=== PATIENT | male | born 1950 | race Caucasian/White ===

== ENCOUNTER 2016-05-26 10:40 | Inpatient (IN) | payer MEDICARE, MEDICAID ==
[~2016-05-26] VITALS: Ht 172.7 cm; Wt 84.4 kg
[2016-05-26 11:03] LABS: BASOPHILS % (AUTO) 0.5 % (0.0-2.0); DIFF TOTAL % 100 %; EOSINOPHILS # (AUTO) 0.2 /CMM (0.0-0.7); EOSINOPHILS % (AUTO) 1.9 % (0.0-6.0); HEMATOCRIT 45 % (39-51); HEMOGLOBIN 14.8 g/dL (13.5-17.5); LYMPHOCYTES # (AUTO) 2.6 /CMM (0.8-4.8); LYMPHOCYTES % (AUTO) 27.9 % (20.0-44.0); MEAN CORPUSCULAR HEMOGLOBIN 30 PG (26.0-33.0); MEAN CORPUSCULAR HGB CONC 33 g/dl (31.0-36.0); MEAN CORPUSCULAR VOLUME 90 fL (80-96); MONOCYTES # (AUTO) 1.3 /CMM (0.1-1.30); MONOCYTES % (AUTO) 14.4 % (2.0-12.0); NEUTROPHILS # (AUTO) 5.2 /CMM (1.8-8.9); NEUTROPHILS % (AUTO) 55.3 % (43.0-81.0); PLATELET COUNT (AUTO) 120 /CMM (150-450); WHITE BLOOD COUNT (AUTO) 9.3 K/uL (4.3-11.0)
[2016-05-26 11:29] LABS: ANION GAP 13 (5-14); CALCIUM, SERUM 8.7 mg/dL (8.5-10.1); CARBON DIOXIDE 28 mmol/L (21-32); CHLORIDE 108 mmol/L (98-107); CREATININE 1.1 mg/dL (0.6-1.3); GFR 67 mL/min (>60); GLUCOSE 87 mg/dL (74-106); POTASSIUM 3.8 mmol/L (3.5-5.1); SODIUM SERUM 145 mmol/L (136-145); UREA NITROGEN, BLOOD 20 mg/dL (7-18)
[2016-05-26 11:35] LABS: ALANINE AMINOTRANSFERASE 47 U/L (12-78); ALBUMIN 3.3 g/dL (3.4-5.0); ASPARTATE AMINOTRANSFERASE 29 U/L (15-37); BILIRUBIN,DIRECT 0.1 mg/dL (0.0-0.2); BILIRUBIN,TOTAL 0.3 mg/dL (0.2-1.0); INDIRECT BILIRUBIN 0.2 mg/dL (0.0-1.1); TOTAL PROTEIN, SERUM 7.2 g/dL (6.4-8.2)
[2016-05-26 11:36] LABS: ACETAMINOPHEN 0 ug/ml (10-30)
[2016-05-26] MEDS ORDERED: ESCI5TAB PO (12:25)
[2016-05-26] MEDS ORDERED: MULT-213 PO (12:25)
[2016-05-26] MEDS ORDERED: NA P133E RC (12:25)
[2016-05-26] MEDS ORDERED: CRAN3875 PO (12:25)
[2016-05-26] MEDS ORDERED: ACET-868 PO (12:25)
[2016-05-26] MEDS ORDERED: CLON0.5T PO (12:25)
[2016-05-26] MEDS ORDERED: BISA10SU8 RC (12:25)
[2016-05-26] MEDS ORDERED: ONDA4TAB5 PO (12:25)
[2016-05-26] MEDS ORDERED: LEVE100S PO (12:25)
[2016-05-26] MEDS ORDERED: MAGN400O6 PO (12:25)
[2016-05-26] MEDS ORDERED: NITR0.4T SL (12:25)
[2016-05-26] MEDS ORDERED: VALP250S3 PO (12:25)
[2016-05-26] MEDS ORDERED: DOCU-25 PO (12:25)
[2016-05-26] MEDS ORDERED: BUDE10.2 INH (12:25)
[2016-05-26] MEDS ORDERED: CALC500T3 PO (12:25)
[2016-05-26] MEDS ORDERED: ALBU2.5V38 NEB (12:25)
[2016-05-26] MEDS ORDERED: LEVO25TA9 PO (12:25)
[2016-05-26] MEDS ORDERED: CRAN425C PO (12:25)
[2016-05-26 12:29] LABS: ADD UA MICROSCOPIC NO; KETONES,URINE Negative (NEGATIVE); LEUKOCYTE ESTERASE ,URINE Negative (NEGATIVE); PH,URINE 6.5 (5.0-8.0)
[2016-05-26 12:54] LABS: CANNABINOID, URINE NEGATIVE (NEGATIVE); PHENCYCLIDINE SCREEN,URINE NEGATIVE (NEGATIVE)
[2016-05-26 16:00] VITALS: BP 116/76
[2016-05-26] MEDS ORDERED: NA PHOS,M-B/NA PHOS,DI-BA 1 EA ENEMA RC PRN (16:30)
[2016-05-26] MEDS ORDERED: BISACODYL SUPP (10 MG) 10 MG/SUPP.RECT SUPP.RECT RC PRN (16:30)
[2016-05-26] MEDS ORDERED: MAGNESIUM HYDROXIDE 30 ML UDC PO PRN ×3 (16:30→22:00)
[2016-05-26] MEDS ORDERED: LORAZEPAM 0.5 MG TABLET PO PRN (16:30)
[2016-05-26] MEDS ORDERED: MAG HYDROX/AL HYDROX/SIMETH 30 ML UDC PO PRN (16:30)
[2016-05-26] MEDS ORDERED: ACETAMINOPHEN 325 MG TABLET PO PRN ×2 (16:30)
[2016-05-26] MEDS ORDERED: NITROGLYCERIN 0.4 MG/TAB BOTTLE SL PRN (16:30)
[2016-05-26 16:37] VITALS: BP 116/76
[2016-05-26] MEDS: FLUTICASONE/SALMETEROL DISKUS IH SCH (17:31)
[2016-05-26] MEDS: LEVETIRACETAM SOL (5 ML) 100 MG/ML UDC PO SCH (17:33)
[2016-05-26 20:00] VITALS: BP 86/50
[2016-05-26] MEDS: ALBUTEROL FS 2.5 MG/3 ML VIAL.NEB NEB SCH (20:04)
[2016-05-26] MEDS: DIVALPROEX SODIUM 500 MG TABLET.DR PO SCH (20:43)
[2016-05-26] MEDS ORDERED: Z GUARD REMEDY 2 OZ OINT TP PRN (21:00)
[2016-05-26] MEDS: DOCUSATE SODIUM 100 MG CAPSULE PO SCH (21:27)
[2016-05-26] MEDS ORDERED: VALPROIC ACID 250 MG/5 ML UDC PO SCH (22:00)
[2016-05-27] MEDS: ALBUTEROL FS 2.5 MG/3 ML VIAL.NEB NEB SCH ×4 (01:43→20:12)
[2016-05-27 04:00] VITALS: BP_SYST 116; BP_SYST 86; BP_DIAS 50; BP_DIAS 76
[2016-05-27 07:47] LABS: ALBUMIN 3.3 g/dL (3.4-5.0); BILIRUBIN,TOTAL 0.7 mg/dL (0.2-1.0); CALCIUM, SERUM 8.8 mg/dL (8.5-10.1); CREATININE 0.9 mg/dL (0.6-1.3); POTASSIUM 4.3 mmol/L (3.5-5.1); TOTAL PROTEIN, SERUM 7.4 g/dL (6.4-8.2)
[2016-05-27 08:00] VITALS: BP 100/61
[2016-05-27] MEDS: LEVETIRACETAM SOL (5 ML) 100 MG/ML UDC PO SCH ×2 (09:00→17:36)
[2016-05-27] MEDS: MULTIVITAMINS W-MINERALS 1 TAB TABLET PO SCH (09:00)
[2016-05-27] MEDS: DIVALPROEX SODIUM 500 MG TABLET.DR PO SCH (09:00)
[2016-05-27] MEDS: LEVOTHYROXINE SODIUM 25 MCG TABLET PO SCH (09:00)
[2016-05-27] MEDS: CALCIUM CARBONATE (1250) 500 MG TABLET PO SCH (09:00)
[2016-05-27] MEDS: FLUTICASONE/SALMETEROL DISKUS IH SCH ×2 (09:02→17:36)
[2016-05-27] MEDS: NEOMY SULF/BACITRAC ZN/POLY 15 GM TUBE TP SCH (11:00)
[2016-05-27 16:00] VITALS: BP 118/69
[2016-05-27 20:14] VITALS: BP 102/61
[2016-05-27] MEDS: DOCUSATE SODIUM 100 MG CAPSULE PO SCH (21:27)
[2016-05-27] MEDS: VALPROIC ACID 250 MG/5 ML UDC PO SCH (21:27)
[2016-05-27] MEDS: TEMAZEPAM 7.5 MG CAPSULE PO PRN (23:59)
[2016-05-28] MEDS: ALBUTEROL FS 2.5 MG/3 ML VIAL.NEB NEB SCH ×5 (02:03→19:47)
[2016-05-28 08:34] VITALS: BP 107/64
[2016-05-28] MEDS: CALCIUM CARBONATE (1250) 500 MG TABLET PO SCH (08:39)
[2016-05-28] MEDS: LEVETIRACETAM SOL (5 ML) 100 MG/ML UDC PO SCH ×2 (08:39→19:00)
[2016-05-28] MEDS: MULTIVITAMINS W-MINERALS 1 TAB TABLET PO SCH (08:39)
[2016-05-28] MEDS: LEVOTHYROXINE SODIUM 25 MCG TABLET PO SCH (08:39)
[2016-05-28] MEDS: FLUTICASONE/SALMETEROL DISKUS IH SCH ×2 (08:41→19:00)
[2016-05-28] MEDS: VALPROIC ACID 250 MG/5 ML UDC PO SCH ×2 (08:52→22:41)
[2016-05-28] MEDS: NEOMY SULF/BACITRAC ZN/POLY 15 GM TUBE TP SCH (08:52)
[2016-05-28 15:50] VITALS: BP 108/57
[2016-05-28 20:39] VITALS: BP 117/66
[2016-05-28] MEDS: DOCUSATE SODIUM 100 MG CAPSULE PO SCH (22:42)
[2016-05-28] MEDS: TEMAZEPAM 7.5 MG CAPSULE PO PRN (22:43)
[2016-05-29] MEDS: ALBUTEROL FS 2.5 MG/3 ML VIAL.NEB NEB SCH ×3 (01:16→13:14)
[2016-05-29 08:00] VITALS: BP 109/72
[2016-05-29] MEDS: LEVETIRACETAM SOL (5 ML) 100 MG/ML UDC PO SCH (08:43)
[2016-05-29] MEDS: LEVOTHYROXINE SODIUM 25 MCG TABLET PO SCH (08:44)
[2016-05-29] MEDS: MULTIVITAMINS W-MINERALS 1 TAB TABLET PO SCH (08:44)
[2016-05-29] MEDS: CALCIUM CARBONATE (1250) 500 MG TABLET PO SCH (08:44)
[2016-05-29] MEDS: VALPROIC ACID 250 MG/5 ML UDC PO SCH (08:44)
[2016-05-29] MEDS: FLUTICASONE/SALMETEROL DISKUS IH SCH (09:30)
[2016-05-29] MEDS: NEOMY SULF/BACITRAC ZN/POLY 15 GM TUBE TP SCH (09:30)
== END 2016-05-29 15:30 | DRG 885 ==
LOC: ER 10:42 → GPS 14:17
PROVIDERS: ADMIT Psychiatry & Neurology Psychosomatic Medicine
DX: F31.9 Bipolar disorder, unspecified (principal); B19.20 Unspecified viral hepatitis C without hepatic coma; F03.90 Unspecified dementia, unspecified severity, without behavioral disturbance, psychotic disturbance, mood disturbance, and anxiety; F29 Unspecified psychosis not due to a substance or known physiological condition; E03.9 Hypothyroidism, unspecified; E11.9 Type 2 diabetes mellitus without complications; E78.5 Hyperlipidemia, unspecified; D69.6 Thrombocytopenia, unspecified; G40.909 Epilepsy, unspecified, not intractable, without status epilepticus; I10 Essential (primary) hypertension; J44.9 Chronic obstructive pulmonary disease, unspecified
CPT/HCPCS: 36415; 70450-TC; 80048-TC; 80053-TC; 80076-TC; 80164-TC; 80305; 81000-TC; 85025-TC; 87081-TC; 97001-TC; A4606; G0480; G6039-TC; J1953; Z7610

== ENCOUNTER 2018-06-25 13:39 | Inpatient (IN) | payer MEDICARE, OTHER ==
[~2018-06-25] VITALS: Ht 182.9 cm; Wt 80.4 kg
[~2018-06-25 13:39] MED LIST: ACET-868 PO; ALBU2.5V38 NEB; BISA10SU8 RC; BUDE10.2 INH; CALC500T3 PO; CLON0.5T PO; CRAN3875 PO; CRAN425C6 PO; DOCU-141 GT; ESCI5TAB PO; LEVE100S GT; LEVO25TA9 PO; MAGN400O6 PO; MULT-213 PO; NA P133E RC; NITR0.4T SL; ONDA4TAB5 PO; VALP250S3 GT
--- NOTE | 2018-06-25 13:40 | NUR ---
MICHELL Sanchez FROM [facility], C/O FEVER, PT NOTED TACHYPNEIC. TO ER BED 10, HOOKED TO MONITOR, CHANGED TO [facility], AWAITING MD BAUM. COOLING MEASURES DONE.
--- NOTE | 2018-06-25 13:52 | NUR ---
DR MELGAR AT BEDSIDE
[2018-06-25] MEDS ORDERED: IV NS 0.9% 1,000 ML BAG IV ONE ×3 (14:00→16:00)
[2018-06-25] MEDS ORDERED: ACETAMINOPHEN 650 MG/SUPP.RECT RC ONE ×2 (14:00→14:31)
--- NOTE | 2018-06-25 14:04 | NUR ---
DR OLVERA AT BEDSIDE
[2018-06-25] MEDS ORDERED: ACET650S26 GT (14:07)
[2018-06-25] MEDS ORDERED: AMIN30LI2 GT (14:07)
[2018-06-25] MEDS ORDERED: LORA1TAB GT (14:07)
[2018-06-25] MEDS ORDERED: BLOO-668 IN (14:07)
[2018-06-25] MEDS ORDERED: MULT-24 GT (14:07)
[2018-06-25] MEDS ORDERED: INSU100V36 SQ (14:07)
[2018-06-25] MEDS ORDERED: FURO-145 GT (14:07)
[2018-06-25] MEDS ORDERED: ACET-2605 GT (14:07)
[2018-06-25] MEDS ORDERED: NUT.237L30 GT (14:13)
[2018-06-25 14:19] LABS: NEUTROPHILS # (AUTO) 18.4 /CMM (1.8-8.9)
[2018-06-25 14:22] LABS: BASOPHILS # (AUTO) 0.3 /CMM (0.0-0.2); BASOPHILS % (AUTO) 1.1 % (0.0-2.0); HEMATOCRIT 54 % (39-51); HEMOGLOBIN 17.6 g/dL (13.5-17.5); LYMPHOCYTES # (AUTO) 4.5 /CMM (0.8-4.8); LYMPHOCYTES % (AUTO) 17.3 % (20.0-44.0); MEAN CORPUSCULAR HGB CONC 32 g/dl (31.0-36.0); MEAN CORPUSCULAR VOLUME 95 fL (80-96); MONOCYTES # (AUTO) 2.7 /CMM (0.1-1.30); MONOCYTES % (AUTO) 10.5 % (2.0-12.0); NEUTROPHILS % (AUTO) 71.1 % (43.0-81.0); PLATELET COUNT (AUTO) 170 /CMM (150-450); RED BLOOD CELL COUNT(AUTO) 5.72 MIL/uL (4.5-6.0); WHITE BLOOD COUNT (AUTO) 25.9 K/uL (4.3-11.0)
[2018-06-25 14:26] LABS: CALCIUM, SERUM 9.5 mg/dL (8.5-10.1); CARBON DIOXIDE 26 mmol/L (21-32); CHLORIDE 113 mmol/L (98-107); GLUCOSE 169 mg/dL (74-106); POTASSIUM 4.4 mmol/L (3.5-5.1); SODIUM SERUM 151 mmol/L (136-145); UREA NITROGEN, BLOOD 39 mg/dL (7-18)
[2018-06-25 14:31] LABS: ALANINE AMINOTRANSFERASE 32 U/L (12-78); ALBUMIN 3.5 g/dL (3.4-5.0); ALKALINE PHOSPHATASE 60 U/L (46-116); ASPARTATE AMINOTRANSFERASE 21 U/L (15-37); BILIRUBIN,DIRECT 0.2 mg/dL (0.0-0.2); BILIRUBIN,TOTAL 1.1 mg/dL (0.2-1.0); TOTAL PROTEIN, SERUM 8.4 g/dL (6.4-8.2)
[2018-06-25 14:32] LABS: APPEARANCE,URINE Clear (CLEAR); BILIRUBIN,URINE Negative (NEGATIVE); BLOOD, URINE Trace-intact Ery/uL (NEGATIVE); COLOR,URINE Yellow (YELLOW); KETONES,URINE Negative (NEGATIVE); LEUKOCYTE ESTERASE ,URINE Negative (NEGATIVE); NITRITE, URINE Negative (NEGATIVE); PH,URINE 5.5 (5.0-8.0); PROTEIN,URINE Trace mg/dl (NEGATIVE); UGLUCOSE Negative (NEGATIVE); UROBILINOGEN,URINE 0.2 EU/dL (0.2)
[2018-06-25 14:50] LABS: ABG BASE EXCESS 3.2 mmol/L; ABG OXYGEN SATURATION 94.9 % (92.0-98.5); ABG PCO2 37.4 mmHg (35.0-45.0); ABG PH 7.472 (7.350-7.450); AaDO2 31.9 mmHg; COHb 0.8 % (0.5-1.5); MetHb 0.5 % (0.0-1.5); O2Hb 93.7 % (94.0-97.0); SITE, ABG Right Radial; VENT MODE, BG RA
[2018-06-25 14:50] LABS: BACTERIA,URINE Few /HPF (None Seen); MUCUS,URINE Few /LPF (None Seen); SQUAMOUS EPITHELIAL CELL,UR Few /HPF (None Seen); URINE AMORPHOUS URATE Few /HPF (None Seen); WBC,URINE 0-2 /HPF (0-3)
[2018-06-25] MEDS ORDERED: PIPERACILLIN /TAZOBACTAM 3.375 G in IV D5W 50 ML IV ONE (15:30)
--- NOTE | 2018-06-25 15:53 | NUR ---
CALLED NURSING SUP REQUESTED TELE BED
--- NOTE | 2018-06-25 16:09 | NUR ---
ADMIT TO 312-2 TELE SEPSIS ACCEPTED BY TON JAY NP
--- NOTE | 2018-06-25 16:28 | NUR ---
ZOSYN 3.375MG IVPB L WRIST 20G END TIME: 1640
--- NOTE | 2018-06-25 16:37 | NUR ---
REPORT GIVEN TO SADE GEORGES OF TELE UNIT
[2018-06-25 17:45] VITALS: BP 94/56
--- NOTE | 2018-06-25 17:55 | NUR ---
MS motor vehicle field representative Notes Received patient asleep, resting in bed. Semi-Fowlers position, supine. Alert and oriented x1-2, able to make needs known by nodding head. Non-verbal. No signs/symptoms of shortness of breath or pain at this time. Respirations even and unlabored on room air, no acute distress noted. Peripheral IV to the left wrist 22 gauge, intact, patent and saline locked. Skin assessment completed; sacrum intact. Wound consult requested per Omi score. Vital signs stable. Personal belongings noted upon admission and on form. Updated patient on current plan of care and safety measures. Safety and fall precautions in place: bed in lowest and locked position, side rails up x2, bed alarm on, call light and personal possessions within reach. Room well lit, no clutter on floor. Reminded patient of safety measures, nodded in understanding. Will endorse to DESTINI Fletcher for continuity of care.
--- NOTE | 2018-06-25 18:00 | NUR ---
Paged Epic on-call MD Milind Quinn for admission orders. Will be up to assess patient shortly.
[2018-06-25] MEDS ORDERED: MAGNESIUM HYDROXIDE 30 ML UDC PO PRN (18:30)
[2018-06-25] MEDS ORDERED: MAG HYDROX/AL HYDROX/SIMETH 30 ML UDC PO PRN (18:30)
[2018-06-25] MEDS ORDERED: DEXTROSE 50%-WATER 50 ML DISP.SYRIN IV PRN (18:30)
[2018-06-25] MEDS ORDERED: LORAZEPAM 1 MG TABLET GT PRN (18:30)
[2018-06-25] MEDS ORDERED: ZOLPIDEM TARTRATE 5 MG TABLET PO PRN (18:30)
[2018-06-25] MEDS ORDERED: ACETAMINOPHEN 650 MG/20.3 ML UDC GT PRN (18:30)
[2018-06-25] MEDS ORDERED: ONDANSETRON HCL/PF 4 MG/2 ML VIAL IVP PRN (18:30)
[2018-06-25] MEDS ORDERED: Z GUARD REMEDY 2 OZ OINT TP PRN (18:30)
[2018-06-25] MEDS: IV 1/2NS 1000 ML 1,000 ML IV PRN (19:21)
--- NOTE | 2018-06-25 19:59 | NUR ---
RN NOTES RECEIVED PATIENT, AWAKE ALERT AND ORIENTED X2, NO SIGNS OF ACUTE RESPIRATORY DISTRESS NOTED, ALL SAFETY MEASURES IN PLACED,ON SEIZURE PRECAUTION, ASPIRATION PRECAUTION MAINTAINED, KEPT CLEAN DRY AND COMFORTABLE, GT INTACT AND PATENT, NO ABDOMINAL DISTENTION NOTED, IV ACCESS INTACT AND PATENT INFUSING WELL. WILL MONITOR ACCORDINGLY.
[2018-06-25 20:00] VITALS: BP 105/67
[2018-06-25] MEDS: LEVETIRACETAM SOL (5 ML) 100 MG/ML UDC GT SCH (20:19)
[2018-06-25] MEDS: ENOXAPARIN SODIUM 40 MG/0.4 ML DISP.SYRIN SQ SCH (20:20)
[2018-06-25] MEDS: PIPERACILLIN /TAZOBACTAM 3.375 G in IV D5W 100 ML IV SCH (20:21)
[2018-06-25] MEDS: GLUCERNA 1.2 1,000 ML BOTTLE GT SCH (21:23)
[2018-06-25] MEDS: DOCUSATE SODIUM 100 MG CAPSULE PO SCH (22:13)
[2018-06-25] MEDS: VALPROIC ACID 250 MG/5 ML UDC GT SCH (22:13)
[2018-06-25] MEDS: BLOOD SUGAR DIAGNOSTIC 1 EACH STRIP IN SCH (22:29)
[2018-06-26] VITALS: BP 115/72
[2018-06-26 04:00] VITALS: BP 118/71
[2018-06-26] MEDS: PIPERACILLIN /TAZOBACTAM 3.375 G in IV D5W 100 ML IV SCH ×3 (04:01→20:00)
[2018-06-26] MEDS: BLOOD SUGAR DIAGNOSTIC 1 EACH STRIP IN SCH ×4 (07:02→23:04)
--- NOTE | 2018-06-26 07:15 | NUR ---
MS RN Opening Notes Received patient awake, resting in bed. Semi-Fowlers position, supine. Aspiration and Seizure precautions in place. Alert and oriented x1-2, able to make needs known by nodding head. Non-verbal. No signs/symptoms of shortness of breath or pain at this time. Respirations even and unlabored on room air, no acute distress noted. Peripheral IV to the left wrist 22 gauge, intact, patent and infusing fluids as ordered. Vital signs stable. Personal belongings noted upon admission and on form. Updated patient on current plan of care and safety measures. Safety and fall precautions in place: bed in lowest and locked position, side rails up x2, bed alarm on, call light and personal possessions within reach. Room well lit, no clutter on floor. Reminded patient of safety measures, nodded in understanding. Will continue to monitor and intervene as needed.
--- NOTE | 2018-06-26 07:32 | NUR ---
RN NOTES ALL NEEDS ATTENDED AND MET, REPOSITIONED FOR COMFORT, NO SIGNS OF ACUTE DISTRESS NOTED, GT FEEDING TOLERATING WELL, NO RESIDUAL NOTED, NO ABDOMINAL DISTENTION NOTED, IV ACCESS INTACT AND PATENT, KEPT CLEAN DRY AND COMFORTABLE, ENDORSE TO AM NURSE FOR CONTINUITY OF CARE.
[2018-06-26 07:49] LABS: BASOPHILS # (AUTO) 0.1 /CMM (0.0-0.2); BASOPHILS % (AUTO) 0.5 % (0.0-2.0); HEMATOCRIT 43 % (39-51); HEMOGLOBIN 14.2 g/dL (13.5-17.5); LYMPHOCYTES # (AUTO) 3.3 /CMM (0.8-4.8); LYMPHOCYTES % (AUTO) 15.5 % (20.0-44.0); MEAN CORPUSCULAR HGB CONC 33 g/dl (31.0-36.0); MEAN CORPUSCULAR VOLUME 93 fL (80-96); MONOCYTES # (AUTO) 2.3 /CMM (0.1-1.30); MONOCYTES % (AUTO) 10.7 % (2.0-12.0); NEUTROPHILS # (AUTO) 15.7 /CMM (1.8-8.9); NEUTROPHILS % (AUTO) 73.3 % (43.0-81.0); PLATELET COUNT (AUTO) 111 /CMM (150-450); RED BLOOD CELL COUNT(AUTO) 4.64 MIL/uL (4.5-6.0); WHITE BLOOD COUNT (AUTO) 21.3 K/uL (4.3-11.0)
[2018-06-26 08:00] VITALS: BP 103/64
[2018-06-26 08:04] LABS: ALBUMIN 2.7 g/dL (3.4-5.0); BILIRUBIN,TOTAL 0.8 mg/dL (0.2-1.0); CREATININE 0.8 mg/dL (0.6-1.3); MAGNESIUM 2.2 mg/dL (1.8-2.4); PHOSPHORUS 1.9 mg/dL (2.5-4.9); POTASSIUM 3.2 mmol/L (3.5-5.1); TOTAL PROTEIN, SERUM 6.8 g/dL (6.4-8.2)
[2018-06-26] MEDS: PROSOURCE / PROSTAT (PYXIS) 30 ML UDC GT SCH (09:21)
[2018-06-26] MEDS: LEVETIRACETAM SOL (5 ML) 100 MG/ML UDC GT SCH ×2 (09:21→21:10)
[2018-06-26] MEDS: MULTIVITAMINS,THERAGRAN 1 UDTAB TABLET GT SCH (09:21)
[2018-06-26] MEDS: PANTOPRAZOLE 40 MG VIAL IV SCH (09:21)
[2018-06-26] MEDS: POTASSIUM CL. PREMIX PERIPHER. 50 ML IV SCH ×6 (10:21→22:55)
[2018-06-26] MEDS: NEUTRA PHOS 1 POWD.PACKET PO SCH ×3 (10:21→16:19)
[2018-06-26] MEDS ORDERED: FEE PK DOSING 1 MIN EA MC ONE (15:04)
[2018-06-26 16:00] VITALS: BP 105/68
--- NOTE | 2018-06-26 16:00 | NUR ---
MS RN Note Spoke with pharmacy about issues with IV medications and IV access for patient. Only able to gain one peripheral IV access at this time. Advised on schedule of medication and IV potassium replacement. Noted and will endorse as necessary.
[2018-06-26] MEDS: VANCOMYCIN 1 GM in IV D5W 250 ML IV SCH (16:19)
[2018-06-26] MEDS: IV 1/2NS 1000 ML 1,000 ML IV PRN (16:20)
[2018-06-26] MEDS: INSULIN REGULAR, HUMAN 100 UNIT/ML 3 ML VIAL SQ PRN (16:52)
--- NOTE | 2018-06-26 18:30 | NUR ---
MS RN Closing Notes Received patient awake, resting in bed. Semi-Fowlers position, supine. Aspiration and Seizure precautions in place. Alert and oriented x1-2, able to make needs known by nodding head. Non-verbal; some verbal utterance. No signs/symptoms of shortness of breath or pain at this time. Respirations even and unlabored on room air, no acute distress noted. Peripheral IV to the right wrist 22 gauge, intact, patent and infusing fluids as ordered. Vital signs stable. Updated patient on current plan of care and safety measures. Safety and fall precautions in place: bed in lowest and locked position, side rails up x2, bed alarm on, call light and personal possessions within reach. Room well lit, no clutter on floor. Reminded patient of safety measures, nodded in understanding. Will endorse to nightman RN for continuity of care.
[2018-06-26 20:00] VITALS: BP 114/67
--- NOTE | 2018-06-26 20:00 | NUR ---
MS RN NOTES RECEIVED PATIENT AWAKE IN BED WITH NO DISTRESS NOTED. CALL LIGHT WITHIN REACH. NO C/O PAIN OR DISCOMFORT. PERIPHERAL LINE INTACT AND PATENT. GT INTACT AND PATENT. BED IN LOW LOCK SETTING. ALL BELONGINGS KEPT NEAR BEDSIDE. WILL CONTINUE TO MONITOR.
[2018-06-26] MEDS: DOCUSATE SODIUM 100 MG CAPSULE PO SCH (21:09)
[2018-06-26] MEDS: VALPROIC ACID 250 MG/5 ML UDC GT SCH (21:10)
[2018-06-26] MEDS: ENOXAPARIN SODIUM 40 MG/0.4 ML DISP.SYRIN SQ SCH (21:18)
[2018-06-26] MEDS: GLUCERNA 1.2 1,000 ML BOTTLE GT SCH (21:22)
[2018-06-26] MEDS: PIPERACILLIN /TAZOBACTAM 4.5 G in IV D5W 50 ML IV SCH (22:07)
[2018-06-27] MEDS: PIPERACILLIN /TAZOBACTAM 4.5 G in IV D5W 50 ML IV SCH ×4 (00:33→17:14)
[2018-06-27] MEDS: VANCOMYCIN 1 GM in IV D5W 250 ML IV SCH ×2 (03:12→15:57)
[2018-06-27] MEDS: BLOOD SUGAR DIAGNOSTIC 1 EACH STRIP IN SCH ×3 (05:36→18:16)
--- NOTE | 2018-06-27 06:52 | NUR ---
MS RN NOTES PATIENT ASLEEP IN BED WITH NO DISTRESS NOTED. CALL LIGHT WITHIN REACH. ALL DUE MEDS GIVEN ORDERED WITH NO ASE NOTED. NO C/O PAIN OR DISCOMFORT. PERIPHERAL LINE INTACT AND PATENT. GTF GLUCERNA 1.2 RUNNING AT 65ML/HR AND TOLERATING WELL. BED IN LOW LOCK SETTING. HOB MAINTAINED AT 45 DEGREES. ALL BELONGINGS KEPT NEAR BEDSIDE. WILL ENDORSE TO ONCOMING SHIFT.
[2018-06-27 07:07] LABS: BASOPHILS % (AUTO) 0.3 % (0.0-2.0); EOSINOPHILS % (AUTO) 0.5 % (0.0-6.0); HEMATOCRIT 40 % (39-51); HEMOGLOBIN 13.1 g/dL (13.5-17.5); MEAN CORPUSCULAR HGB CONC 33 g/dl (31.0-36.0); MEAN CORPUSCULAR VOLUME 93 fL (80-96); MONOCYTES # (AUTO) 1.3 /CMM (0.1-1.30); MONOCYTES % (AUTO) 9.2 % (2.0-12.0); NEUTROPHILS # (AUTO) 9.8 /CMM (1.8-8.9); PLATELET COUNT (AUTO) 92 /CMM (150-450); RED BLOOD CELL COUNT(AUTO) 4.26 MIL/uL (4.5-6.0); WHITE BLOOD COUNT (AUTO) 14.3 K/uL (4.3-11.0)
--- NOTE | 2018-06-27 07:15 | NUR ---
RECEIVED PATIENT AWAKE IN BED WITH NO DISTRESS NOTED. CALL LIGHT WITHIN REACH. NO C/O PAIN OR DISCOMFORT. PERIPHERAL LINE INTACT AND PATENT. GT INTACT AND PATENT, FEEDING AT 65 ML/HR TOLERATES WELL WITH NO RESIDUAL . BED IN LOW LOCK SETTING, SIDE RAILS UP X2. WILL CONTINUE TO MONITOR
[2018-06-27 07:16] LABS: CALCIUM, SERUM 8.3 mg/dL (8.5-10.1); CREATININE 0.8 mg/dL (0.6-1.3); MAGNESIUM 2.1 mg/dL (1.8-2.4); POTASSIUM 3.4 mmol/L (3.5-5.1)
[2018-06-27 07:39] LABS: PHOSPHORUS 2.4 mg/dL (2.5-4.9)
[2018-06-27 08:00] VITALS: BP_SYST 105; BP_SYST 120; BP_DIAS 55; BP_DIAS 66
[2018-06-27] MEDS: MULTIVITAMINS,THERAGRAN 1 UDTAB TABLET GT SCH (08:07)
[2018-06-27] MEDS: PANTOPRAZOLE 40 MG VIAL IV SCH (08:07)
[2018-06-27] MEDS: LEVETIRACETAM SOL (5 ML) 100 MG/ML UDC GT SCH ×2 (08:07→21:47)
[2018-06-27] MEDS: NEUTRA PHOS 1 POWD.PACKET PO SCH ×4 (08:07→16:27)
[2018-06-27] MEDS: PROSOURCE / PROSTAT (PYXIS) 30 ML UDC GT SCH (08:08)
[2018-06-27] MEDS: POTASSIUM CL. PREMIX PERIPHER. 50 ML IV SCH ×4 (09:23→12:36)
[2018-06-27 09:28] LABS: BAND % (MANUAL) 2 % (0.0-5.0); LYMPHOCYTES % (MANUAL) 25 % (16-48); MONOCYTES % (MANUAL) 3 % (0-11.0); NEUTROPHILS % (MANUAL) 70 (42-76)
[2018-06-27 16:00] VITALS: BP 119/74
--- NOTE | 2018-06-27 18:23 | NUR ---
Pt resting in bed. Aspiration and seizure precautions in place. Alert and oriented x1-2, able to make needs known. No signs/symptoms of shortness of breath or pain at this time. Respirations even and unlabored on room air, no acute distress noted. Peripheral IV to the right wrist 22 gauge, intact, patent and infusing fluids at 75 ml/hr. Vital signs stable. Bed in lowest and locked position, side rails up x2, bed alarm on, call light within reach. Will endorse to next shift for continuity of care.
--- NOTE | 2018-06-27 19:20 | NUR ---
MS/RN NOTES RECEIVED PT.LYING IN BED RESTING. PT. IS EASILY AROUSABLE TO NAME AND TOUCH. PT. IS AWAKE, ALERT AND ORIENTED X1-2. BREATHING EVEN AND UNLABORED ON ROOM AIR. NO SOB, RESPIRATORY DISTRESS OR COMPLAINTS OF PAIN NOTED AT THIS TIME. PT. WITH RIGHT WRIST 22 GAUGE PERIPHERAL IV PRESENT, PATENT AND INTACT ADMINISTERING TO PT. 1/2NS @ 75 ML/HR. PT.WITH G-TUBE PRESENT, PATENT AND INTACT. PT. TUBE FEEDING GLUCERNA 1.2 @ 65ML/HR HELD AT THIS TIME AND TO RESUME AT 2100. PT. WITH NO RESIDUAL NOTED AT THIS TIME. BED LOCKED AND IN LOWEST POSITION, SIDE RAILS UP X3, BED ALARM ON, CALL LIGHT WITHIN REACH, WILL CONTINUE TO MONITOR.
[2018-06-27 20:00] VITALS: BP 115/73
[2018-06-27] MEDS: DOCUSATE SODIUM 100 MG CAPSULE PO SCH (21:47)
[2018-06-27] MEDS: VALPROIC ACID 250 MG/5 ML UDC GT SCH (21:47)
[2018-06-27] MEDS: GLUCERNA 1.2 1,000 ML BOTTLE GT SCH (21:48)
--- NOTE | 2018-06-27 22:10 | NUR ---
MS/RN NOTES NOTIFIED EPIC TUTOR COORDINATOR MANISHA CORRIGAN PT. HAS SCHEDULED DAILY DOSE OF LOVENOX 40MG. PT. CURRENT PLATELETS ARE 92 AND H/H IS 13.1/40. NO S/S OF BLEEDING NOTED AT THIS TIME. PER MANISHA CORRIGAN ADMINISTER TO PT. MEDICATION ORDERED. WILL CARRY OUT ORDER. WILL CONTINUE TO MONITOR.
[2018-06-27] MEDS: ENOXAPARIN SODIUM 40 MG/0.4 ML DISP.SYRIN SQ SCH (22:13)
[2018-06-27] MEDS: IV 1/2NS 1000 ML 1,000 ML IV PRN (22:44)
[2018-06-28] MEDS: BLOOD SUGAR DIAGNOSTIC 1 EACH STRIP IN SCH ×5 (00:49→23:24)
[2018-06-28] MEDS: PIPERACILLIN /TAZOBACTAM 4.5 G in IV D5W 50 ML IV SCH ×5 (00:49→23:24)
[2018-06-28] MEDS: VANCOMYCIN 1 GM in IV D5W 250 ML IV SCH ×2 (04:11→15:04)
--- NOTE | 2018-06-28 06:24 | NUR ---
MS/RN NOTES PT. IS LYING IN BED RESTING. BREATHING EVEN AND UNLABORED ON ROOM AIR. NO SOB, RESPIRATORY DISTRESS OR COMPLAINTS OF PAIN NOTED AT THIS TIME AND THROUGHOUT SHIFT. PT. WITH RIGHT WRIST 22 GAUGE PERIPHERAL IV PRESENT, PATENT AND INTACT ADMINISTERING TO PT. 1/2NS @ 75 ML/HR. PT.WITH G-TUBE PRESENT, PATENT AND INTACT ADMINISTERING TO PT. TUBE FEEDING GLUCERNA 1.2 @ 65ML/HR. PT. TOLERATING TUBE FEEDING WELL WITH NO RESIDUAL NOTED AT THIS TIME AND THROUGHOUT SHIFT. ALL PT. NEEDS MET. PT. OFFLOADED, TURNED AND REPOSITIONED Q2H AND NEEDED. BED LOCKED AND IN LOWEST POSITION, SIDE RAILS UP X3, BED ALARM ON, CALL LIGHT WITHIN REACH, WILL ENDORSE TO DAYSWIFT NURSE FOR CONTINUITY OF CARE.
[2018-06-28 06:28] LABS: BASOPHILS % (AUTO) 0.4 % (0.0-2.0); EOSINOPHILS % (AUTO) 1.8 % (0.0-6.0); HEMATOCRIT 39 % (39-51); MEAN CORPUSCULAR HGB CONC 34 g/dl (31.0-36.0); MEAN CORPUSCULAR VOLUME 93 fL (80-96); MONOCYTES # (AUTO) 0.7 /CMM (0.1-1.30); MONOCYTES % (AUTO) 7.8 % (2.0-12.0); NEUTROPHILS # (AUTO) 5.1 /CMM (1.8-8.9); PLATELET COUNT (AUTO) 80 /CMM (150-450); RED BLOOD CELL COUNT(AUTO) 4.16 MIL/uL (4.5-6.0)
[2018-06-28 06:54] LABS: CALCIUM, SERUM 8.4 mg/dL (8.5-10.1); CREATININE 0.7 mg/dL (0.6-1.3); MAGNESIUM 2.1 mg/dL (1.8-2.4); POTASSIUM 3.5 mmol/L (3.5-5.1)
--- NOTE | 2018-06-28 07:35 | NUR ---
RN OPENING NOTE PT WAS RECEIVED IN BED AT LOWEST AND LOCKED POSITION WITH SIDE RAILS UP X2, A/O X1-2, BREATHING EVEN AND UNLABORED ON RA, NO S/S OF ANY DISTRESS OR PAIN NOTED AT THIS TIME, NOTED TO HAVE GTUBE IN PLACE WITH FEEDING RUNNING AT 65/HR, IV IS PATENT AND INTACT, SAFETY PRECAUTIONS IN PLACE, CALL LIGHT WITHIN REACH, WILL MONITOR ACCORDINGLY.
[2018-06-28 08:00] VITALS: BP 110/69
[2018-06-28] MEDS: PANTOPRAZOLE 40 MG VIAL IV SCH (08:41)
[2018-06-28] MEDS: LEVETIRACETAM SOL (5 ML) 100 MG/ML UDC GT SCH ×2 (08:41→22:09)
[2018-06-28] MEDS: MULTIVITAMINS,THERAGRAN 1 UDTAB TABLET GT SCH (08:41)
[2018-06-28] MEDS: PROSOURCE / PROSTAT (PYXIS) 30 ML UDC GT SCH (08:42)
--- NOTE | 2018-06-28 12:02 | NUR ---
WOUND CARE CONSULT: PT PRESENTS WITH IMMOBILITY AND INCONTINENCE OF LIQUID STOOL AND URINE, PRESENT ON ADMISSION. RECOMMENDATIONS MADE FOR SKIN PROTECTION. DISCUSSED WITH NURSING STAFF. WILL SEE PRN. CURRENT ELIO SCORE IS 12. ISOFLEX LOW AIRLOSS BED TO BE PLACED. WILL SEE PRN. MD IN AGREEMENT WITH PLAN OF CARE.
--- NOTE | 2018-06-28 12:30 | NUR ---
RN NOTE STOOL COLLECTED AND TAKEN TO LAB IN ORDER TO R/O C.DIFF AT THIS TIME
[2018-06-28] MEDS: IV 1/2NS 1000 ML 1,000 ML IV PRN (15:05)
[2018-06-28] MEDS: GLUCERNA 1.2 1,000 ML BOTTLE GT SCH (15:08)
[2018-06-28 16:00] VITALS: BP 107/61
[2018-06-28] MEDS ORDERED: LACTOBACILLUS RHAMNOSUS GG 1 EACH CAP.SPRINK PO SCH (17:00)
[2018-06-28] MEDS: INSULIN REGULAR, HUMAN 100 UNIT/ML 3 ML VIAL SQ PRN (17:39)
--- NOTE | 2018-06-28 18:12 | NUR ---
RN CLOSING NOTE PT IN BED AT LOWEST AND LOCKED POSITION WITH SIDE RAILS UP X2, A/O X1-2 BREATHING EVEN AND UNLABORED ON RA, NO S/S OF ANY DISTRESS OR PAIN NOTED AT THIS TIME, GTUBE IN PLACE WITH FEEDING RUNNING AT 65/HR AND FLUSHED, IV IS PATENT AND INTACT, SAFETY PRECAUTIONS IN PLACE, CALL LIGHT WITHIN REACH, ALL NEEDS ATTENDED TO, WILL ENDORSE TO [employer]UT[employer] ARCHITECT RN FOR BYRON.
[2018-06-28 20:00] VITALS: BP 111/62
--- NOTE | 2018-06-28 20:00 | NUR ---
MS RN NOTE: PATIENT RESTING IN BED, NO ACUTE DISTRESS NOTE. BREATHING EVEN AND UNLABORED, NO SOB NOTED. IV TO RIGHT WRIST IN PLACE. G-TUBE IN PLACE, WITH 5ML OF RESIDUAL, HOB ELEVATED. NO S/S HYPER/HYPOGLYCEMIA NOTED. BED LOCKED AND IN LOWEST POSITION, CALL LIGHT IN REACH. WILL CONTINUE TO MONITOR.
[2018-06-28] MEDS: ENOXAPARIN SODIUM 40 MG/0.4 ML DISP.SYRIN SQ SCH (21:00)
[2018-06-28] MEDS: DOCUSATE SODIUM 100 MG CAPSULE PO SCH (22:00)
[2018-06-28] MEDS: VALPROIC ACID 250 MG/5 ML UDC GT SCH (22:09)
--- NOTE | 2018-06-29 00:15 | NUR ---
MS RN NOTE: PATIENT BLOOD SUGAR LEVEL 90MG/DL, NO INSULIN PER SLIDING SCALE. NO S/S OF HYPER/HYPOGLYCEMIA NOTED. PATIENT ON G-TUBE FEEDING. WILL CONTINUE TO MONITOR.
[2018-06-29] MEDS: VANCOMYCIN 1 GM in IV D5W 250 ML IV SCH ×2 (04:43→16:19)
[2018-06-29] MEDS: BLOOD SUGAR DIAGNOSTIC 1 EACH STRIP IN SCH ×4 (05:45→23:29)
[2018-06-29] MEDS: IV 1/2NS 1000 ML 1,000 ML IV PRN ×2 (05:46→10:06)
[2018-06-29] MEDS: PIPERACILLIN /TAZOBACTAM 4.5 G in IV D5W 50 ML IV SCH ×4 (05:46→23:30)
--- NOTE | 2018-06-29 06:40 | NUR ---
MS RN NOTE: PATIENT RESTING IN BED, NO ACUTE DISTRESS NOTE. BREATHING EVEN AND UNLABORED, NO SOB NOTED. IV TO RIGHT WRIST IN PLACE. G-TUBE IN PLACE, HOB ELEVATED. BLOOD SUGAR LEVEL 112MG/DL, NO INSULIN NEED PER SLIDING SCALE. NO S/S HYPER/HYPOGLYCEMIA NOTED. BED LOCKED AND IN LOWEST POSITION, CALL LIGHT IN REACH. WILL ENDORSE TO DAY NURSE TO CONTINUE WITH PLAN OF CARE.
[2018-06-29 08:00] VITALS: BP 92/56
--- NOTE | 2018-06-29 08:00 | NUR ---
MS RN NOTE: PATIENT RESTING IN BED, NO ACUTE DISTRESS NOTE. BREATHING EVEN AND UNLABORED, NO SOB NOTED. IVF TO RIGHT WRIST IN PLACE WITH ONGOING IVF OF 1/2 NS 75 ML/HR INFUSING WELL. G-TUBE IN PLACE WITH GLUCERNA GT FEEDING AT 65 ML/HR INFUSING WELL-TOLERATING WELL, HOB ELEVATED. BLOOD SUGAR LEVEL 112MG/DL, NO INSULIN NEED PER SLIDING SCALE. NO S/S HYPER/HYPOGLYCEMIA NOTED. BED LOCKED AND IN LOWEST POSITION, CALL LIGHT IN REACH. WILL CONTINUE WITH PLAN OF CARE.
[2018-06-29] MEDS: GLUCERNA 1.2 1,000 ML BOTTLE GT SCH (08:26)
[2018-06-29] MEDS: LEVETIRACETAM SOL (5 ML) 100 MG/ML UDC GT SCH ×2 (09:21→20:29)
[2018-06-29] MEDS: PANTOPRAZOLE 40 MG VIAL IV SCH (09:22)
[2018-06-29] MEDS: PROSOURCE / PROSTAT (PYXIS) 30 ML UDC GT SCH (09:22)
[2018-06-29] MEDS: MULTIVITAMINS,THERAGRAN 1 UDTAB TABLET GT SCH (09:22)
[2018-06-29 09:43] LABS: BASOPHILS % (AUTO) 0.6 % (0.0-2.0); EOSINOPHILS % (AUTO) 3.4 % (0.0-6.0); HEMATOCRIT 40 % (39-51); HEMOGLOBIN 13.3 g/dL (13.5-17.5); LYMPHOCYTES # (AUTO) 2.3 /CMM (0.8-4.8); MEAN CORPUSCULAR HGB CONC 34 g/dl (31.0-36.0); MEAN CORPUSCULAR VOLUME 92 fL (80-96); MONOCYTES # (AUTO) 0.9 /CMM (0.1-1.30); MONOCYTES % (AUTO) 10.1 % (2.0-12.0); NEUTROPHILS # (AUTO) 5.1 /CMM (1.8-8.9); NEUTROPHILS % (AUTO) 58.9 % (43.0-81.0); PLATELET COUNT (AUTO) 101 /CMM (150-450); RED BLOOD CELL COUNT(AUTO) 4.32 MIL/uL (4.5-6.0); WHITE BLOOD COUNT (AUTO) 8.6 K/uL (4.3-11.0)
[2018-06-29 09:55] LABS: CALCIUM, SERUM 8.8 mg/dL (8.5-10.1); CREATININE 0.8 mg/dL (0.6-1.3); MAGNESIUM 2.1 mg/dL (1.8-2.4); POTASSIUM 4.2 mmol/L (3.5-5.1)
--- NOTE | 2018-06-29 15:15 | NUR ---
CALLED LAB AND SPOKE TO HUBER FOR PENDING BLOOD C/S NO.2 SENT THIS MORNING.CARYL STATED THAT ALL BLOOD CULTURES ARE SENT TO [facility] AND WAS PICKED UP AT 1400 TODAY.HUBER STATED THAT IT USUALLY TAKES 24-48 HOURS FOR THE RESULT.
[2018-06-29 16:00] VITALS: BP 98/63
[2018-06-29] MEDS: CHLORHEXIDINE GLUCONATE 15 ML UDC MM SCH (16:43)
--- NOTE | 2018-06-29 17:04 | NUR ---
PT RESTING IN BED COMFORTABLY WITH EYES CLOSED AND DENIED PAIN.
--- NOTE | 2018-06-29 19:10 | NUR ---
MS RN OPENING NOTE: RECEIVED PATIENT RESTING IN BED, NO ACUTE DISTRESS NOTED. BREATHING EVEN AND UNLABORED, NO SOB NOTED. PERIPHERAL IV TO RIGHT WRIST INFUSING AT 75ML/HR. G-TUBE IN PLACE, NO RESIDUAL, HOB ELEVATED. BED LOCKED AND IN LOWEST POSITION, CALL LIGHT IN REACH. WILL CONTINUE TO MONITOR ACCORDINGLY.
[2018-06-29 20:00] VITALS: BP 103/45
[2018-06-29] MEDS: ENOXAPARIN SODIUM 40 MG/0.4 ML DISP.SYRIN SQ SCH (20:31)
[2018-06-29] MEDS: VALPROIC ACID 250 MG/5 ML UDC GT SCH (21:47)
[2018-06-29] MEDS: DOCUSATE SODIUM 100 MG CAPSULE PO SCH (21:55)
[2018-06-29] MEDS: INSULIN REGULAR, HUMAN 100 UNIT/ML 3 ML VIAL SQ PRN (23:30)
--- NOTE | 2018-06-29 23:30 | NUR ---
MS RN NOTE: PATIENT BLOOD SUGAR LEVEL 91MG/DL, NO INSULIN PER SLIDING SCALE. PATIENT ON G-TUBE FEEDING. WILL CONTINUE TO MONITOR ACCORDINGLY.
[2018-06-30] MEDS: GLUCERNA 1.2 1,000 ML BOTTLE GT SCH (00:05)
[2018-06-30] MEDS: IV 1/2NS 1000 ML 1,000 ML IV PRN (02:33)
[2018-06-30] MEDS: VANCOMYCIN 1 GM in IV D5W 250 ML IV SCH ×2 (03:24→16:05)
[2018-06-30] MEDS: PIPERACILLIN /TAZOBACTAM 4.5 G in IV D5W 50 ML IV SCH ×3 (05:25→17:27)
--- NOTE | 2018-06-30 05:40 | NUR ---
MS RN NOTE: PATIENT BLOOD SUGAR LEVEL 93MG/DL, NO INSULIN PER SLIDING SCALE. PATIENT ON G-TUBE FEEDING. WILL CONTINUE TO MONITOR.
[2018-06-30] MEDS: BLOOD SUGAR DIAGNOSTIC 1 EACH STRIP IN SCH ×3 (05:41→17:27)
[2018-06-30] MEDS: INSULIN REGULAR, HUMAN 100 UNIT/ML 3 ML VIAL SQ PRN (05:42)
--- NOTE | 2018-06-30 07:12 | NUR ---
MS RN CLOSING NOTE: PATIENT RESTING IN BED, NO ACUTE DISTRESS NOTE. BREATHING EVEN AND UNLABORED, NO SOB NOTED. IV TO RIGHT WRIST IN PLACE, IVF INFUSING AT 75ML/HR. G-TUBE IN PLACE, HOB ELEVATED, RUNNING AT 65ML/HR. BED LOCKED AND IN LOWEST POSITION, CALL LIGHT IN REACH. WILL ENDORSE TO DAY NURSE TO CONTINUE WITH PLAN OF CARE.
[2018-06-30 08:00] VITALS: BP 104/62
--- NOTE | 2018-06-30 08:00 | NUR ---
MS RN NOTE: PATIENT RESTING IN BED, NO ACUTE DISTRESS NOTE. BREATHING EVEN AND UNLABORED, NO SOB NOTED. IVF TO RIGHT WRIST IN PLACE WITH ONGOING IVF OF 1/2 NS 75 ML/HR INFUSING WELL. G-TUBE IN PLACE WITH GLUCERNA GT FEEDING AT 65 ML/HR INFUSING WELL-TOLERATING WELL, HOB ELEVATED.NO S/S HYPER/HYPOGLYCEMIA NOTED. BED LOCKED AND IN LOWEST POSITION, CALL LIGHT IN REACH. WILL CONTINUE WITH PLAN OF CARE.
[2018-06-30] MEDS: LEVETIRACETAM SOL (5 ML) 100 MG/ML UDC GT SCH (08:50)
[2018-06-30] MEDS: PANTOPRAZOLE 40 MG VIAL IV SCH (08:50)
[2018-06-30] MEDS: MULTIVITAMINS,THERAGRAN 1 UDTAB TABLET GT SCH (08:50)
[2018-06-30] MEDS: PROSOURCE / PROSTAT (PYXIS) 30 ML UDC GT SCH (08:51)
[2018-06-30] MEDS: CHLORHEXIDINE GLUCONATE 15 ML UDC MM SCH ×2 (09:02→17:30)
[2018-06-30 10:24] LABS: CALCIUM, SERUM 8.6 mg/dL (8.5-10.1); CREATININE 0.8 mg/dL (0.6-1.3); POTASSIUM 3.8 mmol/L (3.5-5.1)
[2018-06-30] MEDS ORDERED: ENOX40DI SQ (10:49)
[2018-06-30] MEDS ORDERED: PANT40VI IV (10:49)
[2018-06-30] MEDS ORDERED: ONDA4VIA23 IVP (10:49)
[2018-06-30] MEDS ORDERED: CHLO473M2 MM (10:49)
--- NOTE | 2018-06-30 12:04 | NUR ---
CHARLES received a call from Marcy Clarke from Public Guardian's office informing SW that she would like to fax conservatorship documents for the pt. SW gave her the fax number. CHARLES received the Conservatorship documentation and gave it to LEWIS Roman to place in pt's chart and informed her that pt. is conserved and conservator information is on the documents. CHARLES also informed dealer development manager Martha Trimble regarding pt. being conserved and documentation is in the chart.
[2018-06-30 16:00] VITALS: BP 101/69
--- NOTE | 2018-06-30 18:40 | NUR ---
DISCHARGED PT TO [facility] WITH STABLE V/S.PT REMAINS ALERT AND CONFUSED.IV H/L TO RT WRIST GAUGE 22 REMAINS INTACT AND PATENT.NO S/S OF INFILTRATION NOTED FOR CONTINUED ATB THERAPY OF VANCO AND ZOSYN FOR 2 MORE DAYS.WITH GT INTACT.REPORT CALLED IN TO DESTINI DICKERSON OF [facility].INFORMED JU,PT'S PUBLIC GUARDIAN AND MADE AWARE OF THE DISCHARGE.
== END 2018-06-30 18:47 | DRG 871 ==
LOC: ER 13:46 → TELE 16:17 → MED 06-26 08:10
PROVIDERS: ADMIT Hospitalist; ATTEND Hospitalist
DX: A41.9 Sepsis, unspecified organism (principal); J69.0 Pneumonitis due to inhalation of food and vomit; J15.9 Unspecified bacterial pneumonia; G93.41 Metabolic encephalopathy; I50.33 Acute on chronic diastolic (congestive) heart failure; N17.0 Acute kidney failure with tubular necrosis; J96.01 Acute respiratory failure with hypoxia; E87.0 Hyperosmolality and hypernatremia; J90 Pleural effusion, not elsewhere classified; D69.6 Thrombocytopenia, unspecified; E86.0 Dehydration; E03.9 Hypothyroidism, unspecified; E78.5 Hyperlipidemia, unspecified; I25.10 Atherosclerotic heart disease of native coronary artery without angina pectoris; I25.2 Old myocardial infarction; K21.9 Gastro-esophageal reflux disease without esophagitis; Z93.1 Gastrostomy status; R13.10 Dysphagia, unspecified; R65.20 Severe sepsis without septic shock; F03.90 Unspecified dementia, unspecified severity, without behavioral disturbance, psychotic disturbance, mood disturbance, and anxiety; F48.2 Pseudobulbar affect; E83.39 Other disorders of phosphorus metabolism; E87.6 Hypokalemia; Z79.4 Long term (current) use of insulin; G40.909 Epilepsy, unspecified, not intractable, without status epilepticus; J44.9 Chronic obstructive pulmonary disease, unspecified; Z86.19 Personal history of other infectious and parasitic diseases; Z95.0 Presence of cardiac pacemaker; K80.20 Calculus of gallbladder without cholecystitis without obstruction; N21.0 Calculus in bladder; K02.9 Dental caries, unspecified; N40.0 Benign prostatic hyperplasia without lower urinary tract symptoms; E11.9 Type 2 diabetes mellitus without complications
CPT/HCPCS: 36415; 36600; 71045-TC; 80048-TC; 80053-TC; 80061-TC; 80076-TC; 80164-TC; 80202-TC; 81000-TC; 82803-TC; 82962-TC; 83605-TC; 83735-TC; 84100-TC; 84484-TC; 85025-TC; 85730-TC; 87040-TC; 87081-TC; 87086-TC; 87400; A4217; C9113; G0378; J1650; J1815; J1953; J2543; J3370; J3480; J3490; J7030; J7060